=== PATIENT | male | born 1980 ===

== ENCOUNTER 2024-11-05 10:31 | Inpatient (IN) | payer OTHER ==
[~2024-11-05] VITALS: Ht 274.3 cm; Wt 97.1 kg
[2024-11-05] MEDS ORDERED: VYTORIN 10-401 EACH PO (11:08)
[2024-11-05] MEDS ORDERED: CHLORTHALIDONE25 MG PO (11:08)
[2024-11-05] MEDS ORDERED: LOTREL 5-10 MG1 CAP PO (11:09)
[2024-11-11] MEDS ORDERED: CEFTRIAXONE SODIUM 2,000 MG VIAL IV ONE (15:15)
[2024-11-11] MEDS ORDERED: LIDOCAINE HCL 1%/EPINEPHRINE 20ML VIAL IJ ONE (15:15)
[2024-11-11] MEDS ORDERED: METRONIDAZOLE/SODIUM CHLORIDE 500 MG/100 ML PIGGYBACK IV ONE (15:15)
[2024-11-11] MEDS ORDERED: BUPIVACAINE HCL 30 ML VIAL IJ ONE (15:15)
[2024-11-11] MEDS ORDERED: OxyCODONE HCL 5 MG TABLET (ROXICODONE) PO PRN (17:30)
[2024-11-11] MEDS ORDERED: 0.9 % SODIUM CHLORIDE 1,000 ML IV SCH (17:30)
[2024-11-11] MEDS ORDERED: ONDANSETRON HCL 2 MG/ML VIAL IV PRN (17:30)
[2024-11-11] MEDS ORDERED: DEXTROSE 50 % IN WATER 0.5 G/ML DISP.SYRIN IV PRN (17:30)
[2024-11-11] MEDS ORDERED: MORPHINE SULFATE 4 MG/ML CARTRIDGE IV PRN (17:30)
[2024-11-11] MEDS ORDERED: MORPHINE SULFATE 4 MG/ML VIAL IV ONE (17:50)
[2024-11-11] MEDS ORDERED: ENALAPRILAT DIHYDRATE 1.25 MG/ML VIAL IV PRN (18:30)
[2024-11-11 18:46] LABS: HEMOGLOBIN 13.7 g/dL (13-16.00); MEAN CELL VOLUME 88.9 fL (80.0-100.00); MEAN CORPUSCULAR HEMOGLOBIN 29.7 pg (27.00-32.0); MEAN CORPUSCULAR HGB CONC 33.4 g/dl (32.0-36.0); PLATELET COUNT 253 K/uL (150-450); RED BLOOD COUNT 4.61 M/uL (4.00-6.00); RED CELL DISTRIBUTION WIDTH 13.8 % (11.5-14.5)
[2024-11-11 19:15] LABS: ALBUMIN 3.9 gm/dL (3.4-5.0); CALCIUM 9.4 mg/dL (8.5-10.1); CREATININE SERUM 1.51 mg/dL (0.70-1.30); GFR 50.22; MAGNESIUM 1.6 mg/dL (1.8-2.4); PHOSPHOROUS 3.6 mg/dL (2.5-4.9); POTASSIUM 3.81 mEq/L (3.5-5.1)
[2024-11-11] MEDS ORDERED: ACETAMINOPHEN 500 MG GEL..CAP PO SCH (20:00)
[2024-11-11] MEDS ORDERED: FAMOTIDINE/PF 20 MG/2 ML VIAL IV PUSH SCH (21:00)
[2024-11-11] MEDS ORDERED: CELECOXIB 200 MG CAPSULE PO SCH (21:00)
[2024-11-12] VITALS (7 sets, daily range): BP systolic 130–146; BP diastolic 83–87; O2SAT 95–100
[2024-11-12] MEDS ORDERED: METRONIDAZOLE/SODIUM CHLORIDE 500 MG/100 ML PIGGYBACK IV SCH (01:00)
[2024-11-12] MEDS ORDERED: GABAPENTIN 300 MG CAPSULE PO SCH (01:00)
[2024-11-12 06:50] LABS: HEMATOCRIT 37.9 % (39.0-48.0); HEMOGLOBIN 13.3 g/dL (13-16.00); MEAN CELL VOLUME 87.5 fL (80.0-100.00); MEAN CORPUSCULAR HEMOGLOBIN 30.6 pg (27.00-32.0); PLATELET COUNT 192 K/uL (150-450); RED BLOOD COUNT 4.33 M/uL (4.00-6.00); RED CELL DISTRIBUTION WIDTH 13.8 % (11.5-14.5)
[2024-11-12 07:36] LABS: ALBUMIN 3.4 gm/dL (3.4-5.0); CALCIUM 8.6 mg/dL (8.5-10.1); CREATININE SERUM 1.24 mg/dL (0.70-1.30); GFR 63.04; MAGNESIUM 1.7 mg/dL (1.8-2.4); PHOSPHOROUS 5.5 mg/dL (2.5-4.9); POTASSIUM 3.8 mEq/L (3.5-5.1)
[2024-11-12] MEDS ORDERED: HYOSCYAMINE SULFATE 0.125 MG TAB.SUBL SL SCH (09:00)
[2024-11-12] MEDS ORDERED: PATIENTS OWN MEDICATION (MEDICAMENTO EN PISO) PO SCH ×3 (09:00→17:00)
[2024-11-12] MEDS ORDERED: MAGNESIUM SULFATE IN WATER 50 ML IV NR (10:15)
[2024-11-12 13:49] LABS: ABG PH 7.461 (7.35-7.45); ABG PO2 78.5 mmHg (80-100); ABG pCO2 37.6 mmHg (35-45); BASE EXCESS 2.5 mmol/l; BICARBONATE 26.2 mmol/l (23-25); SaO2 96.3 %; Tco2 27.4 mmol/l
[2024-11-12 15:43] LABS: allen test SATISFACTORY; mode ROOM AIR; puncture site RADIAL LEFT
[2024-11-12 15:44] LABS: o2 21 %
[2024-11-12] MEDS ORDERED: ENOXAPARIN SODIUM 40 MG/0.4 ML SYRINGE SUBCUTANEO SCH (17:00)
[2024-11-12] MEDS ORDERED: POLYETHYLENE GLYCOL 3350 17 GM BLIST.PACK PO SCH (17:00)
[2024-11-13 00:12] VITALS: O2SAT 96
[2024-11-13 00:25] VITALS: BP 132/85; O2SAT 99
[2024-11-13 05:41] VITALS: O2SAT 96
[2024-11-13 06:45] LABS: HEMATOCRIT 38.5 % (39.0-48.0); HEMOGLOBIN 13.1 g/dL (13-16.00); MEAN CELL VOLUME 88.4 fL (80.0-100.00); MEAN CORPUSCULAR HGB CONC 33.9 g/dl (32.0-36.0); PLATELET COUNT 186 K/uL (150-450); RED BLOOD COUNT 4.36 M/uL (4.00-6.00); RED CELL DISTRIBUTION WIDTH 13.7 % (11.5-14.5)
[2024-11-13 07:21] LABS: CALCIUM 8.9 mg/dL (8.5-10.1); GFR 80.8; MAGNESIUM 2.2 mg/dL (1.8-2.4); PHOSPHOROUS 2.2 mg/dL (2.5-4.9); POTASSIUM 3.28 mEq/L (3.5-5.1)
[2024-11-13 08:00] VITALS: BP 108/70; O2SAT 100
[2024-11-13] MEDS ORDERED: POTASSIUM PHOS,M-BASIC-D-BASIC 3 MM/ML VIAL IV NR (09:00)
[2024-11-13] MEDS ORDERED: ENOXAPARIN SODIUM 40 MG/0.4 ML SYRINGE SUBCUTANEO SCH (09:00)
[2024-11-13] MEDS ORDERED: POTASSIUM CHLORIDE 20MEQ/100ML H2O PB IV NR (09:30)
[2024-11-13 16:38] VITALS: BP 124/81; O2SAT 97
[2024-11-14 00:10] VITALS: BP 138/82; O2SAT 95
[2024-11-14 08:47] VITALS: BP 135/72; O2SAT 96
[2024-11-14] MEDS ORDERED: CHLORTHALIDONE25 MG PO (12:02)
[2024-11-14] MEDS ORDERED: HYOSCYAMINE0.125 M1 SL (12:02)
[2024-11-14] MEDS ORDERED: POM (MEDICAMENTO EN PO (12:03)
[2024-11-14] MEDS ORDERED: LOTREL 5-10 MG1 CAP PO (12:04)
[2024-11-14] MEDS ORDERED: TRAM1TAB98 PO (12:05)
== END 2024-11-14 14:26 | disposition home or self-care (01) | DRG 331 ==
LOC: O/R 11-11 08:50 → SURH 11-11 08:50
PROVIDERS: Internal Medicine Geriatric Medicine; ADMIT Surgery; ATTEND Surgery
PROC: 07BB4ZZ Excision of Mesenteric Lymphatic, Percutaneous Endoscopic Approach (ICD-10-PCS; 2024-11-11)
PROC: 0DTG4ZZ Resection of Left Large Intestine, Percutaneous Endoscopic Approach (ICD-10-PCS; principal; 2024-11-11 10:30)
PROC: 4A12X4Z Monitoring of Cardiac Electrical Activity, External Approach (ICD-10-PCS; 2024-11-12)
DX: C18.6 Malignant neoplasm of descending colon (principal); R59.0 Localized enlarged lymph nodes

== ENCOUNTER 2024-12-12 06:05 | Day surgery (SDC) | payer OTHER ==
[~2024-12-12 06:05] MED LIST: CHLORTHALIDONE25 MG PO; HYOSCYAMINE0.125 M1 SL; LOTREL 5-10 MG1 CAP PO; POM (MEDICAMENTO EN PO; TRAM1TAB98 PO; VYTORIN 10-401 EACH PO
[2024-12-12] MEDS ORDERED: CEFAZOLIN SODIUM 1,000 MG VIAL ONE (07:23)
[2024-12-12] MEDS ORDERED: BUPIVACAINE HCL/MPF 0.5% 30ML VIAL ONE (08:34)
[2024-12-12] MEDS ORDERED: HEPARIN SODIUM,PORCINE/PF 100 UNIT/ML SYRINGE IV ONE (08:35)
[2024-12-12] MEDS ORDERED: TRAM1TAB98 PO (09:13)
== END 2024-12-12 11:00 | disposition home or self-care (01) ==
LOC: CIR.AMB 06:05
PROVIDERS: ATTEND Surgery
DX: D01.0 Carcinoma in situ of colon (principal); C18.3 Malignant neoplasm of hepatic flexure
CPT/HCPCS: 36561; C1751

== ENCOUNTER 2025-07-28 07:00 | Day surgery (SDC) | payer OTHER ==
[2025-07-28] MEDS ORDERED: CEFAZOLIN SODIUM 1,000 MG VIAL IV SCH (08:00)
[2025-07-28] MEDS ORDERED: LIDOCAINE HCL 1%/EPINEPHRINE 20ML VIAL IJ ONE (08:00)
[2025-07-28] MEDS ORDERED: BUPIVACAINE HCL 30 ML VIAL IJ ONE (08:00)
[2025-07-28] MEDS ORDERED: TRAM1TAB98 PO (08:14)
== END 2025-07-28 10:15 | disposition home or self-care (01) ==
LOC: CIR.AMB 07:00 → EDSTATUS 10:45 → CIR.AMB 10:45 → SURH 10:45 → CIR.AMB 16:30
PROVIDERS: ATTEND Surgery
DX: T82.594A Other mechanical complication of infusion catheter, initial encounter (principal); C18.4 Malignant neoplasm of transverse colon